=== PATIENT | female | born 1950 | race Caucasian/White ===

== ENCOUNTER → 2016-09-24 | Outpatient (CLI) | payer BC, MEDICARE ==
[~2016-09-24] MED LIST: ALLEGRA30 MG PO; ATENOLOL; GABAPENTIN; NEURONTIN100 MG/CAP PO; TENORMIN 5050 MG/TAB PO
== END ==
LOC: MC.RAD 10:59
DX: Z12.31 Encounter for screening mammogram for malignant neoplasm of breast (principal)

== ENCOUNTER → 2017-10-28 | Outpatient (CLI) | payer BC | LOC: MC.RAD 13:15 | DX: Z12.31 Encounter for screening mammogram for malignant neoplasm of breast (principal) ==

== ENCOUNTER → 2018-11-03 | Outpatient (CLI) | payer BC | LOC: MC.RAD 11:29 | DX: Z12.31 Encounter for screening mammogram for malignant neoplasm of breast (principal) ==

== ENCOUNTER → 2019-05-15 | Outpatient (CLI) | payer BC ==
[~2019-05-15] VITALS: Ht 157.5 cm; Wt 73.9 kg
[~2019-05-15] MED LIST changes: +ARICEPT10 MG PO; +NORPRAMIN 25MG25 MG PO; +ZESTRIL30 MG PO
[2019-05-15 10:30] VITALS: BP 194/112; PULSE 59
--- NOTE | 2019-05-15 10:57 | NUR ---
back to fluoro
[2019-05-15 11:31] VITALS: BP 202/96; PULSE 63
[2019-05-15 12:13] LABS: CSF APPEARANCE CLEAR; CSF COLOR COLORLESS
[2019-05-15 12:14] LABS: GLUCOSE,CSF 58 mg/dL (40-70); TOTAL PROTEIN,CSF 39 mg/dL (15-45)
[2019-05-15 12:45] LABS: CSF MONONUCLEAR 100 % (70-100); CSF POLYMORPHONUCLEAR 0 % (0-6); CSF RBC 142 /mm3 (0-0)
== END ==
LOC: COL.RAD 09:49
PROVIDERS: Psychiatry & Neurology Neurology
DX: F03.90 Unspecified dementia, unspecified severity, without behavioral disturbance, psychotic disturbance, mood disturbance, and anxiety (principal); G93.89 Other specified disorders of brain; G91.9 Hydrocephalus, unspecified

== ENCOUNTER → 2021-06-02 | Outpatient (CLI) | payer BC ==
[~2021-06-02] MED LIST changes: +OMNICEF 300MG300 MG PO; +PYRIDIUM200 M1 PO
== END ==
LOC: MC.RAD 13:15
DX: Z12.31 Encounter for screening mammogram for malignant neoplasm of breast (principal)

== ENCOUNTER 2022-07-03 09:49 | Emergency (ER) | payer BC ==
[~2022-07-03] VITALS: Ht 160 cm; Wt 68.2 kg
[2022-07-03] MEDS ORDERED: ZOLOFT 100MG100 MG PO (10:10)
[2022-07-03] MEDS ORDERED: SEROQUEL 2525 MG/TAB (10:10)
[2022-07-03] MEDS ORDERED: DETROL1 MG (10:11)
[2022-07-03 10:13] LABS: BASO % 0.5 % (0.0-2.0); EOS # 0.5 K/mm3 (0.0-0.7); EOS % 6.1 % (0.0-4.0); GRAN # 5.2 K/mm3 (1.4-6.5); HEMOGLOBIN 11.9 g/dl (12.5-16.0); LYMPH # 1.2 K/mm3 (1.2-3.4); LYMPH % 15.8 % (20.0-51.0); MEAN CELL VOLUME 91 fl (80.0-100.0); MEAN CORPUSCULAR HEMOGLOBIN 29 pg (27-31); MEAN CORPUSCULAR HGB CONC 32 g/dl (33.0-37.0); MEAN PLATELET VOLUME 11.8 fl (7.4-10.4); MONO # 0.5 K/mm3 (0.1-0.6); MONO % 7.3 % (1.7-9.3); PLATELET COUNT 177 K/mm3 (130-400); RED BLOOD COUNT 4.06 M/mm3 (4.10-5.30); REDCELL DISTRIBUTION WIDTH-CV 13.6 % (11.5-14.5)
[2022-07-03 10:14] LABS: HEMATOCRIT 36.9 % (37.0-47.0)
[2022-07-03 10:58] LABS: ALANINE AMINOTRANSFERASE 6 U/L (0-55); ALBUMIN 3.4 gm/dL (3.4-4.8); ALKALINE PHOSPHATASE 108 U/L (40-150); ANION GAP 6 mmol/L (7-16); AST,SGOT 16 U/L (5-34); BILIRUBIN,TOTAL 0.5 mg/dL (0.2-1.2); BLOOD UREA NITROGEN 17 mg/dL (10-20); CALCIUM 8.9 mg/dL (8.4-10.2); CARBON DIOXIDE 26 mmol/L (23-31); CHLORIDE 110 mmol/L (98-107); CREATININE, serum 0.85 mg/dL (0.57-1.11); GLUCOSE 90 mg/dL (70-99); POTASSIUM 3.9 mmol/L (3.5-4.5); SODIUM 142 mmol/L (136-145); TOTAL PROTEIN 6.7 gm/dL (6.2-8.1)
[2022-07-03 11:06] LABS: TROPONIN-I < 0.010 ng/mL (0.00-0.033)
[2022-07-03 12:25] VITALS: BP 197/100; PULSE 59; TEMP 98.3
== END 2022-07-03 12:30 | disposition home or self-care (01) ==
LOC: COL.ER 09:49
PROVIDERS: Personal Emergency Response Attendant
DX: S09.90XA Unspecified injury of head, initial encounter (principal); S01.01XA Laceration without foreign body of scalp, initial encounter; G20 Parkinson's disease; F02.80 Dementia in other diseases classified elsewhere, unspecified severity, without behavioral disturbance, psychotic disturbance, mood disturbance, and anxiety; W18.30XA Fall on same level, unspecified, initial encounter; W22.8XXA Striking against or struck by other objects, initial encounter; Y92.009 Unspecified place in unspecified non-institutional (private) residence as the place of occurrence of the external cause